=== PATIENT | female | born 1970 | race Caucasian/White ===

== ENCOUNTER → 2016-12-19 | Outpatient (CLI) | payer OTHER ==
[~2016-12-19] MED LIST: CEPH500T PO; CYCL-259 PO; DIAZ10TA4 PO; HYDR2TAB13 PO; HYDR30TA PO; LIDOCAINE PATCH TP; MAGN400O4 PO; ONDA4TAB7 PO; OXYC1TAB9 PO; PREG50CA PO
== END | disposition home or self-care (01) ==
LOC: CFH 09:55
PROVIDERS: ATTEND Obstetrics & Gynecology
DX: N63 Unspecified lump in breast (principal); N60.02 Solitary cyst of left breast; N62 Hypertrophy of breast
CPT/HCPCS: 76641; G0204